=== PATIENT | female | born 1965 | race Caucasian/White ===

== ENCOUNTER → 2024-05-02 | Outpatient (CLI) | payer SELFPAY ==
--- NOTE | 2024-05-02 15:35 | RAD_ITS ---
STUDY: X-RAY - LUMBAR SPINE REASON FOR EXAM: Female, 58 years old. M99.03 DYSFUNCTION OF LUMBAR REGION TECHNIQUE: 5 view(s) of the lumbar spine were obtained. COMPARISON: None FINDINGS: Normal lumbar lordosis. Mild dextroscoliosis centered at L2. There is a normal alignment of the vertebrae. Normal vertebral bodies and endplates. Normal disc space heights. There is multilevel facet hypertrophy. The soft tissue structures are unremarkable. RAD/L/S Spine Min 4 Views IMPRESSION: Mild dextroscoliosis with degenerative disc disease. MRI may be useful. Electronically Signed: Will Gutierrez MD at 11:29 EST ,
== END | disposition home or self-care (01) ==
PROVIDERS: Referring Provider Chiropractor Orthopedic; Visit Provider Chiropractor Orthopedic
DX: M99.03 Segmental and somatic dysfunction of lumbar region (principal); M47.816 Spondylosis without myelopathy or radiculopathy, lumbar region
CPT/HCPCS: 72110